=== PATIENT | female | born 1960 | race Caucasian/White ===

== ENCOUNTER 2017-11-01 16:15 | Emergency (ER) | payer BC, SELFPAY ==
[2017-11-01 16:17] VITALS: BP 161/86; PULSE 84; RESP 18; TEMP 36.4; O2SAT 99; BMI 30.9
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
== END 2017-11-01 16:59 | disposition home or self-care (01) ==
LOC: ED 16:54
PROVIDERS: Emergency Provider Emergency Medicine; Family Provider Family Medicine; PCP Family Medicine
DX: S16.1XXA Strain of muscle, fascia and tendon at neck level, initial encounter (principal); V89.2XXA Person injured in unspecified motor-vehicle accident, traffic, initial encounter; Y93.9 Activity, unspecified; Y92.9 Unspecified place or not applicable; I10 Essential (primary) hypertension; Z79.899 Other long term (current) drug therapy; Z72.0 Tobacco use
CPT/HCPCS: 99282

== ENCOUNTER → 2019-03-23 13:29 | Outpatient (CLI) | payer OTHER, SELFPAY ==
[2018-11-10 13:21] VITALS: BMI 29.5
[2019-01-12 12:59] VITALS: BMI 29.5
--- NOTE | 2019-03-23 14:44 | NEURO ---
NCS and/or EMG Patient Report Ordering Doctor: Antony Mckeon DATE OF SERVICE: 03/23/19 Janet Weiss is a 58-year-old female presents for electrodiagnostic testing of the upper limbs. She reports numbness and tingling in both hands. Electrodiagnostic findings: Left median motor nerve demonstrates prolonged distal latency with reduced amplitude and reduced conduction velocity. Right median motor nerve demonstrates prolonged distal latency with normal amplitude and conduction velocity. Ulnar motor response is normal bilaterally. Normal median and ulnar F waves. Prolonged median sensory latency at the wrist and palm bilaterally. Prolonged left ulnar sensory response. On needle EMG, all muscles tested in the upper limb showed no evidence of denervation with normal motor unit action potentials. Electrodiagnostic impression: This is an abnormal study in the upper limbs. 1. Electrodiagnostic findings demonstrate bilateral median mononeuropathy. This is consistent with a moderate right carpal tunnel syndrome and an advanced left carpal tunnel syndrome. 2. Electrodiagnostic findings demonstrate left ulnar sensory neuropathy. 3. There is no electrodiagnostic evidence for cubital tunnel syndrome. 4. There is no electrodiagnostic evidence for cervical radiculopathy. If there are any further questions, please do not hesitate to contact me.
== END ==
PROVIDERS: Family Provider Family Medicine; PCP Family Medicine; Referring Provider Family Medicine; Visit Provider Family Medicine
DX: G56.03 Carpal tunnel syndrome, bilateral upper limbs (principal)
CPT/HCPCS: 95886; 95913

== ENCOUNTER 2019-11-09 09:25 | Outpatient (RCR) | payer OTHER, SELFPAY ==
[2019-09-27 15:19] VITALS: BMI 29.5
== END 2019-11-23 23:59 ==
LOC: EMPH 09:25
PROVIDERS: PCP Family Medicine; Visit Provider Family Medicine Geriatric Medicine
DX: Z11.59 Encounter for screening for other viral diseases (principal)
CPT/HCPCS: 87635; U0003

== ENCOUNTER → 2019-11-09 22:49 | Outpatient (CLI) | payer OTHER, SELFPAY ==
[2019-09-27 15:19] VITALS: BMI 29.5
== END ==
PROVIDERS: PCP Family Medicine; Visit Provider Family Medicine Geriatric Medicine
DX: Z11.59 Encounter for screening for other viral diseases (principal)
CPT/HCPCS: 87635; U0003

== ENCOUNTER 2019-12-22 08:49 | Outpatient (RCR) | payer OTHER, SELFPAY ==
[2019-09-27 15:19] VITALS: BMI 29.5
== END 2019-12-24 23:59 ==
LOC: EMPH 08:49
PROVIDERS: PCP Family Medicine; Visit Provider Family Medicine Geriatric Medicine
DX: Z03.818 Encounter for observation for suspected exposure to other biological agents ruled out (principal)
CPT/HCPCS: 87426

== ENCOUNTER 2020-01-05 07:12 | Outpatient (RCR) | payer OTHER, SELFPAY ==
[2019-09-27 15:19] VITALS: BMI 29.5
[2020-01-05 09:41] LABS: Probe Check PASS; Specimen Processing Control PASS
== END 2020-01-23 23:59 ==
LOC: EMPH 07:12
PROVIDERS: PCP Family Medicine; Visit Provider Family Medicine Geriatric Medicine
DX: U07.1 COVID-19 (principal)
CPT/HCPCS: 87426; 87635; U0002

== ENCOUNTER 2020-03-30 05:29 | Day surgery (SDC) | payer OTHER, SELFPAY ==
[2019-12-29 15:23] VITALS: BMI 30.8
--- NOTE | 2020-03-09 15:45 | RAD_ITS ---
STUDY: X-RAY - RIGHT WRIST REASON FOR EXAM: Female, 59 years old. carpal tunnel pain x 6 months in right wrist. TECHNIQUE: 3 view(s) of the wrist were obtained. COMPARISON: None. FINDINGS: Normal visualized distal radius and ulna. Normal radiocarpal articulation. Normal distal radioulnar articulation. The lunate as a well-defined degenerative cyst on its proximal medial border. The lunate has a abnormal contour and sclerotic changes on its hamate surface. Mild degenerative arthrosis of the navicular multangular articulation. Moderate degenerative arthrosis of the first carpometacarpal joint. Normal second through fifth carpometacarpal articulations. Normal visualized metacarpal bones. The soft tissue structures are unremarkable. RAD/Wrist min 3 Views IMPRESSION: Small degenerative cyst of the lunate. Contour deformity and irregular sclerotic changes of the lunate on the hamate surface. 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 Mild degenerative changes of the navicular multangular articulation. Moderate degenerative arthrosis of the first carpometacarpal joint. Electronically Signed: Seda Becker MD at 20:12 EST , Service support ,
--- NOTE | 2020-03-09 15:49 | RAD_ITS ---
STUDY: X-RAY - LEFT WRIST REASON FOR EXAM: Female, 59 years old. carpal tunnel pain x 6 months in left wrist. TECHNIQUE: 3 view(s) of the wrist were obtained. COMPARISON: None. FINDINGS: Normal visualized distal radius and ulna. Normal radiocarpal articulation. Normal distal radioulnar articulation. Normal carpal bones. Normal carpal articulations. Mild degenerative changes of the first carpometacarpal joint. Normal second through fifth carpometacarpal articulations. Normal visualized metacarpal bones. The soft tissue structures are unremarkable. RAD/Wrist min 3 Views IMPRESSION: Mild degenerative changes of the first carpometacarpal joint. Otherwise normal wrist. Electronically Signed: Seda Becker MD at 20:07 EST , Service support ,
[2020-03-30] VITALS (7 sets, daily range): BP systolic 139–154; BP diastolic 64–77; PULSE 71–82; RESP 14–18; TEMP 36.2–36.8; O2SAT 95–99; BMI 30.4
--- NOTE | 2020-03-30 05:16 | HP_ITS ---
I have re-examined the patient. There are no clinical changes since date of exam. Intake Intake Visit Reasons: Bilat hands Chief Complaint: BL hands Accompanied by: self Is patient in pain?: Yes Pain scale (1-10): 3 Allergies Penicillins Allergy (Intermediate, Verified 12/29/19 15:28) Rash Medications multivitamin 1 cap PO DAILY 04/14/19 [History Confirmed 03/06/20] diclofenac sodium 1 % topical gel 2 g TOPICAL ONCE #100 g 09/27/19 [Rx Confirmed 03/06/20] hydrochlorothiazide 12.5 mg capsule 12.5 mg PO DAILY #90 cap 02/13/20 [Rx Confirmed 03/06/20] pantoprazole 20 mg tablet,delayed release 20 mg PO DAILY #90 tab 02/13/20 [Rx Confirmed 03/06/20] estradiol 0.5 mg tablet 0.5 mg PO DAILY #90 tab 03/06/20 [Rx Confirmed 03/06/20] PFSH Medical History (Updated 12/29/19 @ 15:[address] Antony Mckeon DO) Cervical cancer (Acute) GERD (gastroesophageal reflux disease) (Chronic) Surgical History History of hysterectomy (Acute) History of orthopedic surgery (Acute) Family History Mother Arthritis Cervical cancer CVA (cerebral vascular accident) Father Myocardial infarction Hypertension Seizure disorder CVA (cerebral vascular accident) Brother Myocardial infarction Social History (Updated 03/08/20 @ 13:[address] Jeimy Boone DO) Smoking Status: Current every day smoker alcohol intake: never substance use type: does not use HPI Bilat hands: Surgical H&P: Yes Details: Parts of this documentation were recorded by a scribe, this documentation accurately reflects the service provided and the decisions made by me, Dr. Jeimy Boone, 03/06/20 1787. KENYETTA STEELE is a 59 year old F NEW patient here today for BL hand numbness and pain. She states she has had this pain and numbness for about 1 year but the pain has worsened over the last few months. She denies any night splinting. She has had an EMG of the BL upper extremities which showed moderate right carpal tunnel syndrome and an advanced left carpal tunnel syndrome. She states that the left hand was worse than the right but now the right hand is worse. Patient states that she has BL hand numbness into the 1st, 2nd and 3rd fingers. Denies any steroid injections. She states that when she wakes up int he mornings she has numbness of all of her fingers. When she drives her hands also go numb. ROS Musc Reports joint pain, Reports joint swelling, Reports numbness, Denies radiating pain into limb, Reports tingling Skin/Breast Denies redness, Denies lesions, Denies itching, Denies rash, Denies skin swelling Neuro Yes numbness, Yes tingling Ortho Exam General General: Yes no acute distress Neurologic: Yes alert, Yes oriented x3 Psychologic: Yes reasonable and appropriate Right Wrist/Hand Skin/Wound: No Swelling, No Ecchymosis, No nail intact, Yes capillary refill normal Right Wrist: Yes Durken's Test, Tinel's and Phalen's; no TTP CMC or Thenar Atrophy Motor: EPL: 5, FDP-2: 4, 1st Dorsal Interosseous: 5, APB: 4 Sensation: Radial: I, Ulnar: I, Median: D Left Wrist/Hand Skin/Wound: No Swelling, No Ecchymosis, Yes capillary refill normal, No erythema Left Wrist: Yes Durken's Test, Yes Tinel's, Yes Phalen's and Yes Thenar Atrophy; no TTP CMC Motor: EPL: 5, FDP-2: 4, 1st Dorsal Interosseous: 5, APB: 4 Sensation: Radial: I, Ulnar: I, Median: D Assessment & Plan Problems 1. Carpal tunnel syndrome on both sides G56.03 Plan Personally reviewed patients EMG study that was completed 02/2019. Patient educated that she has moderate right carpal tunnel syndrome and she has advanced left carpal tunnel syndrome. Recommended surgical carpal tunnel release of the left side and a right carpal tunnel injection during surgery. Reviewed the pre- operative plans with the patient. Risks and benefits of the procedure were fully explained, including but not limited to infection, neurovascular injury, continued pain, arthritis, stiffness, need for further surgery, re-injury, DVT, PE, general risks of anesthesia, and loss of limb or life. The patient understands all the risks and does wish to proceed with written consent for left carpal tunnel release and right carpal tunnel injection. She will be off work for about 2 weeks. Follow up 2 weeks post op or sooner if pain, swelling, numbness or associated symptoms, or concerns develop. All questions answered. Patient in agreement of plan. Orders Orders: Wrist min 3 Views 03/06/20 G56.03 Wrist min 3 Views 03/06/20 G56.03 Wrist min 3 Views 03/06/20 G56.03 Coding Level of Care Code Off vis,new,level 3 Diagnoses Carpal tunnel syndrome on both sides G56.03 COVID (Procedure Consent) Procedure Criteria Procedure Criteria: Yes Elective The surgeon/proceduralist and patient have discussed in detail the risk of exposure to and/or potential harm posed by the COVID-19 virus with having a surgery/procedure at this time versus the risk of? delaying the surgery/procedure. It is not possible to know either the risk of delaying the surgery or procedure or chance of getting an infection with perfect accuracy, but a joint decision was made between the patient and the surgeon/proceduralist ?to proceed at this time with the scheduled surgery/procedure as indicated on the consent form.
[2020-03-30] MEDS: Lactated Ringers 1,000 ML 100 ML IV (06:13)
[2020-03-30] MEDS: Cefazolin 2 GM in 0.9% Normal Saline 100 ML IV (07:20)
--- NOTE | 2020-03-30 07:31 | DCINST_ITS ---
Discharge Diet: No Restrictions - Leave dressing on until seen in postop clinic in 10-14 days for suture removal, keep dressing clean, dry, intact; change dressing if gets wet/dirty, call with concerns Discharge Activity: May Not Drive May shower in (days): 1 Ice area for (Minutes): 20 - Every hour while awake. Weight Bearing Status: Weight bearing as tolerated Keep extremity elevated above heart level: Operative Extremity Call your doctor if your incision/area has: Continuous Slow Oozing, Sudden Increased Bleeding, Increased Pain/ Swelling, Increased Redness, Foul Smelling Discharge Call your doctor if you observe: Fever of 101 or Higher, Coldness, Increased Pain, Numbness or Tingling, Change in Color, Calf discomfort Allergies/Adverse Reactions: Allergies Penicillins Allergy (Intermediate, Verified 03/23/20 09:53) Rash Medications to take at Discharge multivitamin 1 cap PO DAILY 04/14/19 hydrochlorothiazide 12.5 mg capsule 12.5 mg PO DAILY #90 cap 02/13/20 pantoprazole 20 mg tablet,delayed release 20 mg PO DAILY #90 tab 02/13/20 estradiol 0.5 mg tablet 0.5 mg PO DAILY #90 tab 03/06/20 Acetaminophen 325 mg PO Q6H PRN PRN 03/23/20 Acetaminophen/Codeine #3 [Tylenol #3 Tablet] 1 - 2 tab PO Q6H PRN PRN #30 tab 03/30/20 The following prescriptions were given: Acetaminophen/Codeine #3 [Tylenol #3 Tablet] 1 - 2 tab PO Q6H PRN PRN #30 tab PRN Reason: Pain Transmission Status: Sent to [id number] Primary Care Physician: Antony Mckeon DO [Primary Care Provider] - Test Results: Test results from this visit will be discussed in further detail at your follow- up appointment, if applicable. Please Follow Up With: Jeimy Boone DO - [phone]
--- NOTE | 2020-03-30 07:32 | PCM.OPRPT ---
Report of Operation Date of Procedure: 03/30/20 Pre-Operative Diagnosis: bilateral carpal tunnel syndrome Post-Operative Diagnosis: same Surgery/Procedure Performed:: left carpal tunnel release, right carpal tunnel injection Type of Anesthesia:: Alondra [place] Anesthesiologist: Jose Ramon Fisher Description of Procedure: Preoperative note Patient is a { 59 } patient with nerve conduction study confirming bilateral carpal tunnel syndrome. Patient failed conservative treatment for her carpal tunnel elected proceed with left carpal tunnel release right carpal tunnel injection. Risks benefits and alternatives surgery discussed with patient. Risks including but not limited to blood loss, blood clot, infection, neurovascular injury, failure procedure, loss of life and loss of limb. Patient is aware like proceed with left carpal tunnel release right carpal tunnel injection. Operative note Patient seen and examined preoperative holding area. Left hand was marked. History and physical and consent reviewed. Patient was brought to the operating room placed supine on the operating table. Sign in, anesthesia, antibiotics were administered. Left upper extremity was prepped and draped after Alondra block was initiated. All bony prominences well-padded SCDs placed on bilateral lower extremities. We marked out our incisions for our carpal tunnel release at the intersection of Julia's line in the fourth ray flexed. We extended about a centimeter and a half. Timeout was performed. We then checked ensure that the Alondra block was working with pickups which it was. We then used a 15 blade to make a skin incision. We then dissected down tenotomy syllable of the transverse carpal ligament. We then used a new 15 blade cut through the transverse carpal ligament down to the level of the median nerve. We then further released the median nerve the combination of the 15 blade and tenotomies. The nerve was grayish in color and adherent to the transverse carpal ligament volarly. We released the transverse carpal ligament distally to the fat pad and then proximally under standard technique. We then palpated to ensure that we released all of the transverse carpal ligament which we did. We irrigated the incision with copious amounts of sterile saline. All bleeders were coagulated. The incision was closed with interrupted 4-0 nylon stitches. We then moved to the right carpal tunnel and under sterile conditions injected right carpal tunnel with 1% xylocaine plain/20mg kenalog. bandaid applied. Tourniquet was deflated for total working time of 14 minutes. Patient tolerated procedure well there were no complications. Patient transferred to recovery room in stable condition. Postoperative note Hospital pharmacy has prescription Leave dressing clean dry and intact Follow-up in 2 weeks Call with concerns This note was generated with [employer] dictation software. It may contain incorrect words, spelling, and punctuation that were not noted in checking the note before signing.
[2020-03-30] MEDS: Triamcinolone Acetonide 40 MG/ML Vial (07:46)
[2020-03-30] MEDS: Mupirocin Ointment 22gm Tube 1 APPLIC (07:46)
[2020-03-30] MEDS: Lidocaine 1% (5 ml sdv) 5 ML Vial (07:46)
[2020-03-30] MEDS: HYDROcodone Bitartrate/Apap 5/325 Tablet PO (09:14)
== END 2020-03-30 09:25 | disposition home or self-care (01) ==
LOC: SDC 05:31 → AC 05:31
PROVIDERS: PCP Family Medicine; Referring Provider Orthopaedic Surgery; Visit Provider Orthopaedic Surgery
PROC: (CPT 64721; principal; 2020-03-30 07:00)
DX: G56.03 Carpal tunnel syndrome, bilateral upper limbs (principal); F17.200 Nicotine dependence, unspecified, uncomplicated; Z88.0 Allergy status to penicillin; K21.9 Gastro-esophageal reflux disease without esophagitis
CPT/HCPCS: 01992; 20526; 64721; 73110; J7120; A4216

== ENCOUNTER 2020-04-21 18:12 | Outpatient (RCR) | payer OTHER, SELFPAY ==
[2019-12-29 15:23] VITALS: BMI 30.8
[2020-04-04 15:58] VITALS: BMI 30.8
== END 2020-04-21 19:00 | disposition home or self-care (01) ==
LOC: EMPH 18:12
PROVIDERS: PCP Family Medicine; Referring Provider Family Medicine Geriatric Medicine; Visit Provider Family Medicine Geriatric Medicine
DX: Z03.818 Encounter for observation for suspected exposure to other biological agents ruled out (principal)
CPT/HCPCS: 87426

== ENCOUNTER 2020-05-16 09:53 | Outpatient (RCR) | payer OTHER, SELFPAY ==
[2020-04-04 15:58] VITALS: BMI 30.8
== END 2020-05-23 23:59 ==
LOC: EMPH 09:53
PROVIDERS: PCP Family Medicine; Referring Provider Family Medicine Geriatric Medicine; Visit Provider Family Medicine Geriatric Medicine
DX: Z03.818 Encounter for observation for suspected exposure to other biological agents ruled out (principal)
CPT/HCPCS: 87426

== ENCOUNTER 2020-06-22 10:06 | Outpatient (RCR) | payer OTHER, SELFPAY | END 2020-06-22 23:59 | LOC: EMPH 10:06 | PROVIDERS: PCP Family Medicine; Referring Provider Family Medicine Geriatric Medicine; Visit Provider Family Medicine Geriatric Medicine | DX: Z03.818 Encounter for observation for suspected exposure to other biological agents ruled out (principal) | CPT/HCPCS: 87426 ==

== ENCOUNTER 2020-07-13 10:19 | Outpatient (RCR) | payer OTHER, SELFPAY | END 2020-07-23 23:59 | LOC: EMPH 10:19 | PROVIDERS: PCP Family Medicine; Referring Provider Family Medicine Geriatric Medicine; Visit Provider Family Medicine Geriatric Medicine | DX: Z03.818 Encounter for observation for suspected exposure to other biological agents ruled out (principal) | CPT/HCPCS: 87426 ==

== ENCOUNTER 2020-08-21 13:23 | Outpatient (RCR) | payer OTHER, SELFPAY | END 2020-08-22 23:59 | LOC: EMPH 13:23 | PROVIDERS: PCP Family Medicine; Referring Provider Family Medicine Geriatric Medicine; Visit Provider Family Medicine Geriatric Medicine | DX: Z03.818 Encounter for observation for suspected exposure to other biological agents ruled out (principal) | CPT/HCPCS: 87426 ==

== ENCOUNTER 2020-09-21 12:11 | Outpatient (RCR) | payer OTHER, SELFPAY ==
[2020-07-26 15:29] VITALS: BMI 30.8
== END 2020-09-22 23:59 ==
LOC: EMPH 12:11
PROVIDERS: PCP Family Medicine; Referring Provider Family Medicine Geriatric Medicine; Visit Provider Family Medicine Geriatric Medicine
DX: Z03.818 Encounter for observation for suspected exposure to other biological agents ruled out (principal)
CPT/HCPCS: 87426

== ENCOUNTER 2020-10-23 13:14 | Outpatient (RCR) | payer OTHER, SELFPAY ==
[2020-07-26 15:29] VITALS: BMI 30.8
== END 2020-10-23 23:59 ==
LOC: EMPH 13:14
PROVIDERS: PCP Family Medicine; Referring Provider Family Medicine Geriatric Medicine; Visit Provider Family Medicine Geriatric Medicine
DX: Z03.818 Encounter for observation for suspected exposure to other biological agents ruled out (principal)
CPT/HCPCS: 87426

== ENCOUNTER → 2020-10-25 15:53 | Outpatient (CLI) | payer OTHER, SELFPAY ==
[2020-10-25 17:39] LABS: Thyroid Stim Hormone (TSH) 1.04 uIU/mL (0.358-3.74)
== END ==
PROVIDERS: PCP Family Medicine; Referring Provider Family Medicine; Visit Provider Family Medicine
DX: Z00.00 Encounter for general adult medical examination without abnormal findings (principal)
CPT/HCPCS: 36415; 84443

== ENCOUNTER 2020-11-22 13:17 | Outpatient (RCR) | payer OTHER, SELFPAY ==
[2020-10-24 00:31] VITALS: BMI 30.8
== END 2020-11-22 23:59 ==
LOC: EMPH 13:17
PROVIDERS: PCP Family Medicine; Referring Provider Family Medicine Geriatric Medicine; Visit Provider Family Medicine Geriatric Medicine
DX: Z03.818 Encounter for observation for suspected exposure to other biological agents ruled out (principal)
CPT/HCPCS: 87426

== ENCOUNTER 2020-12-17 16:16 | Outpatient (RCR) | payer OTHER, SELFPAY ==
[2020-11-23 00:25] VITALS: BMI 30.8
== END 2020-12-23 23:59 ==
LOC: EMPH 16:16
PROVIDERS: PCP Family Medicine; Referring Provider Family Medicine Geriatric Medicine; Visit Provider Family Medicine Geriatric Medicine
DX: Z03.818 Encounter for observation for suspected exposure to other biological agents ruled out (principal)
CPT/HCPCS: 87426

== ENCOUNTER → 2020-12-27 06:58 | Outpatient (CLI) | payer OTHER, SELFPAY ==
--- NOTE | 2020-12-27 07:00 | BI_ITS ---
MAMMOGRAPHY - BILATERAL SCREENING REASON FOR EXAM: Female, 60 years old. Routine annual screening examination. PERTINENT HISTORY: Non-contributory. TECHNIQUE: Digital bilateral breast adithya (3D mammographic acquisition) in the CC and MLO projections. 2-D mediolateral oblique (MLO) and craniocaudad (CC) views of both breasts were obtained. CAD: Full Field Digital Mammography with Computer Added Detection was performed. COMPARISON: Comparison is made with prior examination dated 10/21/2017. FINDINGS: Breast Composition: The breasts are almost entirely fatty. There are no dominant masses or suspicious calcifications. No other significant abnormalities are identified. There has been no significant change since the prior study. BI/SCRN MAMM (CAD)W/ADITHYA BILAT IMPRESSION: Stable bilateral screening mammogram. Yearly follow-up mammogram recommended. (A) ASSESSMENT CATEGORY: BIRADS Category 1: Negative. A letter regarding these results will be sent to the patient by the facility within 30 days. Approximately 10% of breast cancers are not detected by mammography. A normal mammogram should not delay biopsy of a clinically suspicious abnormality. [id number] Electronically Signed: Rodolfo Kaur MD at 8:31 EDT , Service support ,
== END ==
PROVIDERS: PCP Family Medicine; Referring Provider Family Medicine; Visit Provider Family Medicine
DX: Z12.31 Encounter for screening mammogram for malignant neoplasm of breast (principal)
CPT/HCPCS: 77063; 77067

== ENCOUNTER 2021-01-18 07:25 | Outpatient (RCR) | payer OTHER, SELFPAY ==
[2020-12-24 00:21] VITALS: BMI 30.8
== END 2021-01-22 23:59 ==
LOC: EMPH 07:25
PROVIDERS: PCP Family Medicine; Referring Provider Family Medicine Geriatric Medicine; Visit Provider Family Medicine Geriatric Medicine
DX: Z03.818 Encounter for observation for suspected exposure to other biological agents ruled out (principal)
CPT/HCPCS: 87426

== ENCOUNTER 2021-02-21 10:15 | Outpatient (RCR) | payer OTHER, SELFPAY ==
[2021-01-23 00:26] VITALS: BMI 30.8
== END 2021-02-22 23:59 ==
LOC: EMPH 10:15
PROVIDERS: PCP Family Medicine; Referring Provider Family Medicine Geriatric Medicine; Visit Provider Family Medicine Geriatric Medicine
DX: Z03.818 Encounter for observation for suspected exposure to other biological agents ruled out (principal)
CPT/HCPCS: 87426; 87635; U0003; U0005

== ENCOUNTER 2021-03-25 08:12 | Outpatient (RCR) | payer OTHER, SELFPAY ==
[2021-02-23 00:25] VITALS: BMI 30.8
== END 2021-03-25 23:59 ==
LOC: EMPH 08:12
PROVIDERS: PCP Family Medicine; Referring Provider Family Medicine Geriatric Medicine; Visit Provider Family Medicine Geriatric Medicine
DX: Z03.818 Encounter for observation for suspected exposure to other biological agents ruled out (principal)
CPT/HCPCS: 87426

== ENCOUNTER 2021-04-08 09:25 | Outpatient (RCR) | payer OTHER, SELFPAY ==
[2021-03-26 00:31] VITALS: BMI 30.8
== END 2021-04-22 23:59 ==
LOC: EMPH 09:25
PROVIDERS: PCP Family Medicine; Referring Provider Family Medicine Geriatric Medicine; Visit Provider Family Medicine Geriatric Medicine
DX: Z03.818 Encounter for observation for suspected exposure to other biological agents ruled out (principal)
CPT/HCPCS: 87426

== ENCOUNTER 2021-07-11 08:32 | Day surgery (SDC) | payer OTHER, SELFPAY ==
[2021-07-11] VITALS (7 sets, daily range): BP systolic 148–180; BP diastolic 61–118; PULSE 72–98; RESP 16; TEMP 36.2–36.4; O2SAT 96–100; BMI 33.3
--- NOTE | 2021-07-11 | COLBX_PTH ---
PATIENT: KENYETTA STEELE LOC: EN U#:[id number] AGE/SX: 60/F ROOM: RE07/11/[address]: Dr. Gab Steven DO : 1960 BED: DIS: 07/11/2021 SPEC #: [id number] RECD: 07/11/21 12:06 STATUS: JANEEN REHuy #: [id number] DEEPTI: 07/11/21 00:[address]: Gab Steven DEPT: SURGICAL PATHOLOGY RECD BY: Tiago Durbin ENTERED: 07/11/21 12:07 SP TYPE: COLON BX OTHR DR: Dr. Antony Mckeon, DO Tissues: A - Duodenum, NOS B - Gastric mucous membrane C - Gastric mucous membrane D - Esophageal mucous membrane E - Ileum, NOS F - Ascending colon G - Transverse colon Procedures: Special Stain Group II Surgery Specimen Level IV Alcian Blue/PAS (control) HEADER OPERATION: Colonoscopy, EGD biopsy, dilation, polypectomy (MAC) PRE-OP DIAGNOSIS: GERD, screening TISSUE SUBMITTED: A ? Duodenum biopsy, B ? Gastric antrum biopsy, C ? Gastric body biopsy, D ? Distal esophagus biopsy, E ? Terminal ileum biopsy, F ? Ascending polyp, G ? Transverse polyp MICROSCOPIC DIAGNOSIS A. Duodenum, biopsy: Fragments of duodenal mucosa with mild Nathalia gland hyperplasia. B. Gastric antrum, biopsy: Mild gastritis. See microscopic description and comment. C. Gastric body, biopsy: Mild gastritis. See microscopic description. D. Distal esophagus, biopsy: Fragments of gastroesophageal mucosa with chronic inflammation. Intestinal metaplasia (goblet cell metaplasia) not identified. See comment. E. Terminal ileum, biopsy: A fragment of small intestinal mucosa, no pathologic diagnosis. F. Ascending colon polyp, biopsy: Fragments of tubular adenoma. G. Transverse colon polyp, biopsy: Fragments of tubular adenoma. SJ:rg 07/12/2021 COMMENT B. The results of immunohistochemistry for Helicobacter pylori will be reported separately ([id number]). C. Alcian blue/PAS stain with matched control is used in the evaluation of the specimen. MICROSCOPIC DESCRIPTION Slides are reviewed. B & C. The specimen shows fragments of gastric mucosa with chronic inflammatory cell infiltrates in the lamina propria consisting of lymphocytes and plasma cells, consistent with mild chronic gastritis. GROSS DESCRIPTION A - Received in fixative is one container labeled with the patient's name and designated duodenum biopsy. The specimen consists of two irregular fragments of light fraga soft tissue that in aggregate measure 0.6 x 0.3 x 0.1 cm. The specimen is totally submitted in one cassette. B - Received in fixative is one container labeled with the patient's name and designated antrum biopsy. The specimen consists of two irregular fragments of light fraga soft tissue that in aggregate measure 0.6 x 0.6 x 0.1 cm. The specimen is totally submitted in one cassette. C - Received in fixative is one container labeled with the patient's name and designated gastric body. The specimen consists of multiple irregular fragments of light fraga soft tissue that in aggregate measure 1 x 0.5 x 0.1 cm. The specimen is totally submitted in one cassette. D - Received in fixative is one container labeled with the patient's name and designated distal esophagus biopsy. The specimen consists of multiple irregular fragments of light fraga soft tissue that in aggregate measure 1.3 x 0.6 x 0.1 cm. The specimen is totally submitted in one cassette. E - Received in fixative is one container labeled with the patient's name and designated terminal ileum. The specimen consists of one irregular fragment of light fraga soft tissue that measures 0.5 x 0.5 x 0.1 cm. The specimen is totally submitted in one cassette. F - Received in fixative is one container labeled with the patient's name and designated ascending colon polyp. The specimen consists of multiple irregular fragments of light fraga soft tissue that in aggregate measure 2.2 x 1 x 0.1 cm. The specimen is totally submitted in one cassette. G - Received in fixative is one container labeled with the patient's name and designated transverse colon polyp. The specimen consists of multiple irregular fragments of light fraga soft tissue that in aggregate measure 1 x 1 x 0.1 cm. The specimen is totally submitted in one cassette. / SJ:rg 07/11/2021 TC:1 CPT: 90483 x7, [id number]
--- NOTE | 2021-07-11 09:09 | PCM.HP.BLA ---
History and Physical Date of Admission: 07/11/21 KENYETTA STEELE, is a 60 F who presents to the office today for Evaluation of GERD. Kenyetta established with this clinic 05.02.21 with referral from her PCP. She was noted to have chest/epigastric pain with feeling of food sticking during deglutition. Nexium has shown better results than Protonix, however neither control her symptoms. she was [place] in [place]. She began having chest pain and presented to the ED at that time. Upon return she saw PCP who increased her Nexium to 40mg QD which has been helpful, however she periodically has breakthrough reflux during the night. She has reduced caffeine, chocolates and cigarettes. Currently her goal is to quit cigarettes. Additionally, she is having some difficulty with swallowing particularly when she is having issues with reflux. Additional medical history includes COVID (01.05.20), arthritis, cervical cancer, COPD with chronic cough. ROS Const Constitutional: No anorexia, fatigue, fever(s), weight change or sleep problems Eyes Eyes: No change in vision ENT ENT: No abnormal hearing, difficulty swallowing, mouth lesions, tongue swelling or throat swelling Resp Respiratory: No cough or shortness of breath Cardio Cardiology: No chest pain at rest, chest pain with exertion, shortness of breath or dyspnea on exertion Gastro GI: No difficulty swallowing Genitourinary-Female: No difficulty urinating or burning urination Musc Musculoskeletal: No joint pain, joint swelling, muscle weakness or decreased muscle mass Skin Skin: No hair loss in leg, yellowing of the eye, itchy eyes, rash, skin ulcer or skin swelling Neuro Neurology: No abnormal hearing, abnormal movements, confusion, unsteady gait/balance or memory loss Psych Psychiatric: No anxiety, No confusion and No memory loss Endo Endocrine: No fatigue or weight change Aller/Imm Allergy/Immunologic: No itchy eyes, throat swelling or tongue swelling Fuad/Lymp Hematologic/Lymphatic: No easy bleeding, easy bruising or enlarged lymph nodes Exam Const General: cooperative and comfortable Nutritional Appearance: average body habitus and well nourished [facility] Head: normal to inspection Ears: hearing grossly normal bilaterally Nose: external nose normal Face and sinus: normal facial exam Mouth: oral mucosae normal Throat: posterior oropharynx normal Eyes General: appearance normal, both eyes and all related structures Neck Neck: normal visual inspection Chest Chest palpation & inspection: normal inspection of the chest and normal palpation of entire chest wall Resp Effort & Inspection: normal respiratory effort Auscultation: Bilateral: Clear to Auscultation Cardio Palpation: normal PMI Rate: regular rate Rhythm: regular rhythm GI Inspection: normal to inspection Auscultation: normal bowel sounds Percussion: normal to percussion Palpation: no hepatosplenomegaly Skin General: no rashes or lesions noted Neuro General: patient alert Extrem General: normal to inspection Psych Affect: normal affect Quality Reporting Tobacco Screening ([facility] 138) Smoking Status: Current every day smoker Assessment and Plan Assessment and Plan (1) GERD (gastroesophageal reflux disease): Status: Chronic Plan - Dr. De Guzman Friend, DO: She will undergo an endoscopic evaluation of her upper GI tract, including screening her for Black's esophagus. We will continue her on 40 mg of Nexium at this time. She was explained alternatives, risk, benefits including understanding bleeding, infection, sepsis, perforation, need for emergent . She will have an ASA of 2. She will also be evaluated for possible hernia or any diseases of stomach and small bowel that could be seen with forward-viewing endoscope. (2) Screening for colon cancer: Status: Acute Plan - Dr. De Guzman Friend, DO: She has never had a screening colonoscopy. She was explained alternatives, risk, benefits including not withstanding bleeding, infection, sepsis, perforation, need for emergent . She will have an ASA of 1. I have re-examined the patient. There are no clinical changes since date of exam.
[2021-07-11] MEDS: Lactated Ringers 1,000 ML 15 ML IV (09:13)
--- NOTE | 2021-07-11 09:30 | IMM_PTH ---
PATIENT: KENYETTA STEELE LOC: EN U#:[id number] AGE/SX: 60/F ROOM: RE07/11/[address]: Dr. Gab Steven DO : 1960 BED: DIS: 07/11/2021 SPEC #: [id number] RECD: 07/11/21 13:06 STATUS: JANEEN REQ #: [id number] DEEPTI: 07/11/21 09:[address]: Gab Steven DEPT: IMMUNOHISTOCHEMISTRY RECD BY: Reema Akhtar ENTERED: 07/11/21 13:07 SP TYPE: IMMUNO OTHR DR: Dr. Antony Mckeon, DO Tissues: B - Stomach, NOS Procedures: H Pylori (initial) PHYSICIAN & INSTITUTION [place] [id number] SPECIMEN INFORMATION: Tissue Source: B ? Gastric antrum biopsy Clinical Info: GERD, screening Specimen Number: [id number] CPT code: 92567 METHODOLOGY: Deparaffinized sections of prefer/formalin-fixed tissue or PAP/DQ stained slides are incubated with monoclonal/polyclonal antibodies/oligonucleotide probes. Localization is made via biotin free immunoperoxidase method. Appropriate controls are performed and reacted as expected. Results on target cell population are indicated in the following table: RESULTS: ANTIBODY / CLONE RESULT Block B H Pylori (polyclonal) negative These tests were developed and their performance characteristics determined by [facility]. They may not have been cleared or approved by the U.S. Food and Drug Administration. The FDA has determined that such clearance or approval is not necessary. The above immunohistochemical/dualISH markers are ordered and reviewed by the Pathologist. INTERPRETATION: B. Gastric antrum, biopsy: Negative for Helicobacter pylori organisms. SJ:steve 07/12/2021
--- NOTE | 2021-07-11 09:42 | HP.PCM_ITS ---
History and Physical Date of Admission: 07/11/21 [facility] Details: KENYETTA STEELE, is a 60 F who presents to the office today for Evaluation of GERD. Kenyetta established with this clinic 05.02.21 with referral from her PCP. She was noted to have chest/epigastric pain with feeling of food sticking during deglutition. Nexium has shown better results than Protonix, however neither control her symptoms. she was visiting her [place] in [place]. She began having chest pain and presented to the ED at that time. Upon return she saw PCP who increased her Nexium to 40mg QD which has been helpful, however she periodically has breakthrough reflux during the night. She has reduced caffeine, chocolates and cigarettes. Currently her goal is to quit cigarettes. Additionally, she is having some difficulty with swallowing particularly when she is having issues with reflux. Additional medical history includes COVID (01.05.20), arthritis, cervical cancer, COPD with chronic cough. ROS Const Constitutional: No anorexia, fatigue, fever(s), weight change or sleep problems Eyes Eyes: No change in vision ENT ENT: No abnormal hearing, difficulty swallowing, mouth lesions, tongue swelling or throat swelling Resp Respiratory: No cough or shortness of breath Cardio Cardiology: No chest pain at rest, chest pain with exertion, shortness of breath or dyspnea on exertion Gastro GI: No difficulty swallowing Genitourinary-Female: No difficulty urinating or burning urination Musc Musculoskeletal: No joint pain, joint swelling, muscle weakness or decreased muscle mass Skin Skin: No hair loss in leg, yellowing of the eye, itchy eyes, rash, skin ulcer or skin swelling Neuro Neurology: No abnormal hearing, abnormal movements, confusion, unsteady gait/balance or memory loss Psych Psychiatric: No anxiety, No confusion and No memory loss Endo Endocrine: No fatigue or weight change Aller/Imm Allergy/Immunologic: No itchy eyes, throat swelling or tongue swelling Fuad/Lymp Hematologic/Lymphatic: No easy bleeding, easy bruising or enlarged lymph nodes Exam Const General: cooperative and comfortable Nutritional Appearance: average body habitus and well nourished [facility] Head: normal to inspection Ears: hearing grossly normal bilaterally Nose: external nose normal Face and sinus: normal facial exam Mouth: oral mucosae normal Throat: posterior oropharynx normal Eyes General: appearance normal, both eyes and all related structures Neck Neck: normal visual inspection Chest Chest palpation & inspection: normal inspection of the chest and normal palpation of entire chest wall Resp Effort & Inspection: normal respiratory effort Auscultation: Bilateral: Clear to Auscultation Cardio Palpation: normal PMI Rate: regular rate Rhythm: regular rhythm GI Inspection: normal to inspection Auscultation: normal bowel sounds Percussion: normal to percussion Palpation: no hepatosplenomegaly Skin General: no rashes or lesions noted Neuro General: patient alert Extrem General: normal to inspection Psych Affect: normal affect Quality Reporting Tobacco Screening ([facility] 138) Smoking Status: Current every day smoker Assessment and Plan Assessment and Plan (1) GERD (gastroesophageal reflux disease): Status: Chronic Plan - Dr. De Guzman Friend, DO: She will undergo an endoscopic evaluation of her upper GI tract, including screening her for Black's esophagus. We will continue her on 40 mg of Nexium at this time. She was explained alternatives, risk, benefits including understanding bleeding, infection, sepsis, perforation, need for emergent . She will have an ASA of 2. She will also be evaluated for possible hernia or any diseases of stomach and small bowel that could be seen with forward-viewing endoscope. (2) Screening for colon cancer: Status: Acute Plan - Dr. De Guzman Friend, DO: She has never had a screening colonoscopy. She was explained alternatives, risk, benefits including not withstanding bleeding, infection, sepsis, perforation, need for emergent . She will have an ASA of 1. I have re-examined the patient. There are no clinical changes since date of exam.
[2021-07-11] MEDS: 0.9% Normal Saline (Pres. free 10 ML Vial (10:18)
[2021-07-11] MEDS: Epinephrine (1 mg/ml) 1 MG/ML VIAL (10:19)
--- NOTE | 2021-07-11 10:46 | OP.EGD_ITS ---
Patient Name: Janet Weiss Procedure Date: 07/11/2021 9:46 AM Date of : 1960 Age: 60 Procedure: Upper GI endoscopy Indications: Epigastric abdominal pain, Functional Dyspepsia, Dysphagia, Heartburn Providers: Gab Steven DO Medicines: Monitored Anesthesia Care Patient Profile: This is a 60 year old female. Refer to note in patient chart for documentation of history and physical. Patient has symptoms of chronic dysphagia and chronic heartburn. Complications: No immediate complications. Procedure: Pre-Anesthesia Assessment: - Prior to the procedure, a History and Physical was performed, and patient medications and allergies were reviewed. The risks and benefits of the procedure and the sedation options and risks were discussed with the patient. All questions were answered and informed consent was obtained. Patient identification and proposed procedure were verified by the physician in the pre-procedure area. Mental Status Examination: alert and oriented. Airway Examination: normal oropharyngeal airway and neck mobility. Respiratory Examination: clear to auscultation. CV Examination: normal. Prophylactic Antibiotics: The patient does not require prophylactic antibiotics. Prior Anticoagulants: The patient has taken no previous anticoagulant or antiplatelet agents. ASA Grade Assessment: II - A patient with mild systemic disease. After reviewing the risks and benefits, the patient was deemed in satisfactory condition to undergo the procedure. The anesthesia plan was to use moderate sedation / analgesia (conscious sedation). Immediately prior to administration of medications, the patient was re-assessed for adequacy to receive sedatives. The heart rate, respiratory rate, oxygen saturations, blood pressure, adequacy of pulmonary ventilation, and response to care were monitored throughout the procedure. The physical status of the patient was re-assessed after the procedure. After obtaining informed consent, the endoscope was passed under direct vision. Throughout the procedure, the patient's blood pressure, pulse, and oxygen saturations were monitored continuously. The colonoscope was introduced through the mouth, and advanced to the second part of duodenum. The upper GI endoscopy was accomplished without difficulty. The patient tolerated the procedure well. Scope In: 9:53:29 AM Scope Out: 10:02:03 AM Total Procedure Duration Time 0 hours 8 minutes 34 seconds Findings: LA Grade A (one or more mucosal breaks less than 5 mm, not extending between tops of 2 mucosal folds) esophagitis with no bleeding was found 37 to 40 cm from the incisors. Biopsies were taken with a cold forceps for histology. Verification of patient identification for the specimen was done. Estimated blood loss was minimal. A moderate Schatzki ring was found in the lower third of the esophagus. A guidewire was placed and the scope was withdrawn. Dilation was performed with a Savary dilator with no resistance at 51 Fr. The dilation site was examined following endoscope reinsertion and showed moderate improvement in luminal narrowing. Estimated blood loss was minimal. A medium-sized hiatal hernia was present. Patchy mildly erythematous mucosa without bleeding was found in the gastric body and at the incisura. Biopsies were taken with a cold forceps for histology. Verification of patient identification for the specimen was done. Estimated blood loss was minimal. Patchy mildly erythematous mucosa without active bleeding and with no stigmata of bleeding was found in the duodenal bulb. Biopsies were taken with a cold forceps for histology. Verification of patient identification for the specimen was done. Estimated blood loss was minimal. Impression: - LA Grade A reflux esophagitis. Rule out Black's esophagus. Biopsied. - Moderate Schatzki ring. Dilated. - Medium-sized hiatal hernia. - Erythematous mucosa in the gastric body and incisura. Biopsied. - Erythematous duodenopathy. Biopsied. Recommendation: - Discharge patient to home. - Resume previous diet. - Continue present medications. - Await pathology results. Procedure Code(s): --- Professional --- 13191, Esophagogastroduodenoscopy, flexible, transoral; with insertion of guide wire followed by passage of dilator(s) through esophagus over guide wire 68863, 59, Esophagogastroduodenoscopy, flexible, transoral; with biopsy, single or multiple CPT copyright 2017 [employer]. All rights reserved. The codes documented in this report are preliminary and upon senior principal software engineer review may be revised to meet current compliance requirements. Gab Steven DO 07/11/2021 10:46:39 AM This report has been signed electronically. Number of Addenda: 1 Note Initiated On: 07/11/2021 9:46 AM Addendum Number: 1 Addendum Date: 11/22/2021 6:15:59 AM MAC was used as sedation for this procedure. Gab Steven DO 11/22/2021 6:16:04 AM This report has been signed electronically.
--- NOTE | 2021-07-11 10:47 | OP.CCLET_ITS ---
11/22/2021 Antony Mckeon Re : Upper GI endoscopy procedure for Janet Weiss Dear Dr. Mckeon This procedure was performed on June. My impressions and recommendations are as follows: Impressions : - LA Grade A reflux esophagitis. Rule out Black's esophagus. Biopsied. - Moderate Schatzki ring. Dilated. - Medium-sized hiatal hernia. - Erythematous mucosa in the gastric body and incisura. Biopsied. - Erythematous duodenopathy. Biopsied. Recommendations : - Discharge patient to home. - Resume previous diet. - Continue present medications. - Await pathology results. My findings are described in the full procedure note, which is enclosed. If I can be of further assistance, please feel free to contact me at . Sincerely, Gab Steven, 07/11/2021 10:46:39 AM This report has been signed electronically.
--- NOTE | 2021-07-11 10:54 | OP.COLON_ITS ---
Patient Name: Janet Weiss Procedure Date: 07/11/2021 10:02 AM Date of : 1960 Age: 60 Procedure: Colonoscopy Indications: Screening for colorectal malignant neoplasm Providers: Gab Steven DO Medicines: Monitored Anesthesia Care Patient Profile: This is a 60 year old female. Refer to note in patient chart for documentation of history and physical. Patient has symptoms of chronic dysphagia and chronic heartburn. Last Colonoscopy: date unknown. Unable to locate last colonoscopy report. Complications: No immediate complications. Procedure: Pre-Anesthesia Assessment: - Prior to the procedure, a History and Physical was performed, and patient medications and allergies were reviewed. The risks and benefits of the procedure and the sedation options and risks were discussed with the patient. All questions were answered and informed consent was obtained. Patient identification and proposed procedure were verified by the physician in the pre-procedure area. Mental Status Examination: alert and oriented. Airway Examination: normal oropharyngeal airway and neck mobility. Respiratory Examination: clear to auscultation. CV Examination: normal. Prophylactic Antibiotics: The patient does not require prophylactic antibiotics. Prior Anticoagulants: The patient has taken no previous anticoagulant or antiplatelet agents. ASA Grade Assessment: II - A patient with mild systemic disease. After reviewing the risks and benefits, the patient was deemed in satisfactory condition to undergo the procedure. The anesthesia plan was to use moderate sedation / analgesia (conscious sedation). Immediately prior to administration of medications, the patient was re-assessed for adequacy to receive sedatives. The heart rate, respiratory rate, oxygen saturations, blood pressure, adequacy of pulmonary ventilation, and response to care were monitored throughout the procedure. The physical status of the patient was re-assessed after the procedure. After I obtained informed consent, the scope was passed under direct vision. Throughout the procedure, the patient's blood pressure, pulse, and oxygen saturations were monitored continuously. The Duodenoscope was introduced through the anus and advanced to the terminal ileum. The colonoscopy was performed without difficulty. The patient tolerated the procedure well. The quality of the bowel preparation was good. Scope In: 10:05:13 AM Scope Withdrawal Time 0 hours 28 minutes 35 seconds Scope Out: 10:39:05 AM Total Procedure Duration Time 0 hours 33 minutes 52 seconds Findings: The perianal and digital rectal examinations were normal. Many small and large-mouthed diverticula were found in the recto-sigmoid colon, sigmoid colon and descending colon. There was no evidence of diverticular bleeding. A 5 mm polyp was found in the sigmoid colon. The polyp was sessile. The polyp was removed with a hot snare. Resection and retrieval were complete. Verification of patient identification for the specimen was done. Estimated blood loss was minimal. A 25 mm polyp was found in the ascending colon. The polyp was sessile. Area was successfully injected with 5 mL of a 1:10,000 solution of epinephrine for a lift polypectomy. The polyp was removed with a saline injection-lift technique using a hot snare. Resection and retrieval were complete. Verification of patient identification for the specimen was done. Estimated blood loss was minimal. Coagulation for bleeding prevention using argon plasma at 0.3 liters/minute and 20 mi was successful. A patchy area of the terminal ileum was congested. Biopsies were taken with a cold forceps for histology. Verification of patient identification for the specimen was done. Estimated blood loss was minimal. Impression: - Moderate diverticulosis in the recto-sigmoid colon, in the sigmoid colon and in the descending colon. There was no evidence of diverticular bleeding. - One 5 mm polyp in the sigmoid colon, removed with a hot snare. Resected and retrieved. - One 25 mm polyp in the ascending colon, removed using injection-lift and a hot snare. Resected and retrieved. Injected. - Congested mucosa in the terminal ileum. Biopsied. Recommendation: - Discharge patient to home. - Resume previous diet. - Continue present medications. - Await pathology results. - Repeat colonoscopy in 1 year for surveillance after piecemeal polypectomy. - Return to GI office. Procedure Code(s): --- Professional --- 81131, Colonoscopy, flexible; with removal of tumor(s), polyp(s), or other lesion(s) by snare technique 14044, Colonoscopy, flexible; with directed submucosal injection(s), any substance 96636, 59, Colonoscopy, flexible; with biopsy, single or multiple CPT copyright 2017 [employer]. All rights reserved. The codes documented in this report are preliminary and upon medical record coder review may be revised to meet current compliance requirements. Gab Steven DO 07/11/2021 10:54:16 AM This report has been signed electronically. Number of Addenda: 1 Note Initiated On: 07/11/2021 10:02 AM Addendum Number: 1 Addendum Date: 11/22/2021 6:16:12 AM MAC was used as sedation for this procedure. Gab Steven DO 11/22/2021 6:16:18 AM This report has been signed electronically.
--- NOTE | 2021-07-11 10:55 | OP.CCLET_ITS ---
11/22/2021 Antony Mckeon Re : Colonoscopy procedure for Janet Weiss Dear Dr. Mckeon This procedure was performed on June. My impressions and recommendations are as follows: Impressions : - Moderate diverticulosis in the recto-sigmoid colon, in the sigmoid colon and in the descending colon. There was no evidence of diverticular bleeding. - One 5 mm polyp in the sigmoid colon, removed with a hot snare. Resected and retrieved. - One 25 mm polyp in the ascending colon, removed using injection-lift and a hot snare. Resected and retrieved. Injected. - Congested mucosa in the terminal ileum. Biopsied. Recommendations : - Discharge patient to home. - Resume previous diet. - Continue present medications. - Await pathology results. - Repeat colonoscopy in 1 year for surveillance after piecemeal polypectomy. - Return to GI office. My findings are described in the full procedure note, which is enclosed. If I can be of further assistance, please feel free to contact me at . Sincerely, Gab Steven DO 07/11/2021 10:54:16 AM This report has been signed electronically.
== END 2021-07-11 11:49 | disposition home or self-care (01) ==
LOC: EN 08:33 → AC 08:36
PROVIDERS: PCP Family Medicine; Referring Provider Family Medicine; Visit Provider Internal Medicine Gastroenterology
PROC: 0DJD8ZZ Inspection of Lower Intestinal Tract, Via Natural or Artificial Opening Endoscopic (ICD-10-PCS; CPT 45378; principal; 2021-07-11 09:25)
DX: Z12.11 Encounter for screening for malignant neoplasm of colon (principal); J44.9 Chronic obstructive pulmonary disease, unspecified; K63.5 Polyp of colon; K44.9 Diaphragmatic hernia without obstruction or gangrene; K21.00 Gastro-esophageal reflux disease with esophagitis, without bleeding; K63.89 Other specified diseases of intestine; F17.200 Nicotine dependence, unspecified, uncomplicated; R13.10 Dysphagia, unspecified; K57.30 Diverticulosis of large intestine without perforation or abscess without bleeding; Z86.16 Personal history of COVID-19; Z85.41 Personal history of malignant neoplasm of cervix uteri; K29.70 Gastritis, unspecified, without bleeding
CPT/HCPCS: 45380; 45385; 43239; 43248; 45381; 88305; 88313; 88342; J7120; C1769; J2405; J3490

== ENCOUNTER → 2021-10-14 | Outpatient (CLI) | payer OTHER, SELFPAY ==
--- NOTE | 2021-10-14 14:16 | NEURO ---
NCS and/or EMG Patient Report Ordering Doctor: Brett Woodruff DATE OF SERVICE: 10/14/21 Indication: Left hand numbness, tingling and weakness. History of prior carpal tunnel syndrome status post decompression. Symptoms improved initially, but then returned. A prior study was completed on 03/23/19. Findings: Nerve conduction studies were performed in the left upper extremity. The left median motor study recording the abductor pollicis brevis showed a normal amplitude, prolonged distal latency and normal conduction velocity. The left ulnar motor study recording the abductor digiti minimi showed a normal amplitude, normal distal latency and normal conduction velocity. No conduction block or focal slowing was present across the elbow. The left median sensory response recording digit two showed a normal amplitude (though reduced compared to the ulnar sensory), prolonged latency and mildly slowed conduction velocity. The left ulnar sensory response recording digit five showed a normal amplitude, latency and conduction velocity. The left radial sensory response recording over the extensor snuff box showed a normal amplitude, latency and conduction velocity. Left median-ulnar lumbrical / interosseous motor latencies showed a prolonged median latency compared to the ulnar. Needle EMG of the left upper extremity muscles was performed. No denervation was seen in any muscle. Motor units in the abductor pollicis brevis were slightly large amplitude and long duration with normal recruitment. All other motor unit morphology, activation and recruitment patterns were normal. Impression: This is an abnormal study. 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 There is no active denervation of the thenar muscle to suggest ongoing axon loss. Compared to the prior study from 2019, there has been significant improvement of both median motor and median sensory responses. In addition, there is no electrophysiologic evidence of superimposed cervical radiculopathy in the left upper extremity. Yaniv Lobo D.O. Multi Select Codes Neurology Neurology Interp Codes: 37675-78 Musc test done w/n test comp (interp) and 27399-33 Nr cndj test 7-8 studies (interp)
== END | disposition home or self-care (01) ==
LOC: PSN 12:09
PROVIDERS: PCP Family Medicine; Visit Provider Physician Assistant
DX: R20.2 Paresthesia of skin (principal)
CPT/HCPCS: 95886; 95910

== ENCOUNTER → 2022-10-29 | Outpatient (CLI) | payer OTHER, SELFPAY ==
--- NOTE | 2022-10-29 14:26 | NEURO ---
NCS and/or EMG Patient Report Ordering Doctor: Brett Woodruff DATE OF SERVICE: 10/29/22 Janet presents for electrodiagnostic testing of the right upper limb. He reports numbness and tingling in the right hand. Electrodiagnostic testing: Right median motor nerve demonstrates significantly prolonged distal latency with reduced amplitude and normal conduction velocity. Right ulnar motor response is within normal limits. Normal right ulnar F-wave. Absent right median F-wave. Prolonged right median sensory latency at the wrist. Needle EMG testing was performed in upper limbs. All muscles tested showed no evidence of denervation with normal motor unit action potentials. Electrodiagnostic assessment: This is an abnormal study in the right upper limb. 1. Electrodiagnostic findings suggestive of right-sided median mononeuropathy. This consistent with a severe right carpal tunnel syndrome. Multi Select Codes Neurology Neurology Interp Codes: 90340-64 Musc test done w/n test comp (interp) and 27255-38 Nrv cndj test 7-8 studies (interp)
== END | disposition home or self-care (01) ==
LOC: PSN 08:17
PROVIDERS: PCP Family Medicine; Referring Provider Physician Assistant; Visit Provider Physician Assistant
DX: R20.2 Paresthesia of skin (principal)
CPT/HCPCS: 95886; 95910

== ENCOUNTER → 2023-01-21 | Outpatient (CLI) | payer OTHER, SELFPAY ==
[2023-01-21 16:42] LABS: Absolute Lymphocyte Count 1.59 X10^3/uL (0.83-4.51); Basophil# 0.05 X10^3/uL; Basophil% 0.8 % (0-1); Eosinophil# 0.24 X10^3/uL; Eosinophils% 3.7 % (0-5); Hematocrit 47.1 % (37-47); Hemoglobin 15.1 g/dL (12.0-15.0); Lymphocyte # 1.59 X10^3/ul (0.83-4.51); Lymphocyte % 24.8 % (19-41); Mean Corp Hgb Conc 32.1 g/dL (32-36); Mean Corpuscular Hgb 29.5 pg (27.0-32.0); Mean Platelet Vol. 9.9 fl (6.2-12.0); Monocyte# 0.49 X10^3/uL; Monocyte% 7.6 % (0-10); NRBC Flagged by Analyzer 0 % (0-5); Neutrophil # 4.03 X10^3/uL (2.7-7.7); Neutrophil % 62.9 % (47-70); Platelet Count 396 K/mm3 (150-450); RBC Distribution Width CV 13.2 % (11.6-14.6); RBC Distribution Width SD 45.1 fl (35.1-43.9); Red Blood Count 5.12 M/mm3 (4.2-5.4); White Blood Count 6.4 K/mm3 (4.4-11.0)
[2023-01-21 16:56] LABS: AST(SGOT) 17 U/L (15-37); Alanine Aminotransfer ALT/SGPT 21 U/L (13-56); Albumin, Serum 3.8 g/dL (3.2-5.0); Alkaline Phosphatase 83 U/L (45-117); Anion Gap 5 (5-15); BUN 15 mg/dL (7-18); Calcium,Total 9.3 mg/dL (8.5-10.1); Chloride 100 mmol/L (98-107); Creatinine, Serum 0.79 mg/dL (0.55-1.02); EST Glomerular Filtration Rate 78 mL/min (>60); Est Glom Filt Rate - Afr Amer 94 mL/min (>60); Globulin 3.8 g/dL (2.2-4.2); Glucose 96 mg/dL (74-106); Potassium 3.8 mmol/L (3.5-5.1); Protein, Total 7.6 g/dL (6.4-8.2); Sodium Level 136 mmol/L (136-145)
== END | disposition home or self-care (01) ==
LOC: BIMLAB 15:09
PROVIDERS: PCP Family Medicine; Referring Provider Family Medicine; Visit Provider Family Medicine
DX: I10 Essential (primary) hypertension (principal)
CPT/HCPCS: 36415; 80053; 85025

== ENCOUNTER 2023-01-28 09:27 | Day surgery (SDC) | payer OTHER, SELFPAY ==
[2023-01-28] VITALS (8 sets, daily range): BP systolic 110–136; BP diastolic 56–70; PULSE 18–68; RESP 16; TEMP 36.2–36.8; O2SAT 92–97; BMI 32.4
[2023-01-28] MEDS: Lactated Ringers 1,000 ML 15 ML IV (09:55)
--- NOTE | 2023-01-28 11:04 | HP.PCM_ITS ---
HPI - General HPI Narrative JANET STEELE, is a 62 F who presents for right endoscopic carpal tunnel release surgery. no changes to h and p. ok to proceed. rab and post op intructions - typically no narcotics. MR#: [id number] Acct: [id number] Name: JANET STEELE Rep #: [id number] : 1960 Provider: Dr. Joey Winter MD Age/Sex: 62/F Location: [facility] – [place].GRAB[facility] Status: Signed Intake Vital Signs 07/16/2314:48 10/21/2313:00 Height 5 ft 3 in 5 ft 3 in Weight: 178 lb BMI 31.5 BP 140/70 H Blood Pressure Location Lt brachial Position Sitting Respiration 16 Pulse 76 Pulse Source Monitor Temp 97.5 F L Temp Source Temporal Pulse Oximetry (%) 98 Oxygen Delivery Method room air Intake Visit Reasons: RIGHT HAND Chief Complaint: nerve conduction f/u Accompanied by: Grandson Is patient in pain?: Yes Pain scale (1-10): 3 Allergies Penicillins Allergy (Intermediate, Verified 10/31/22 14:27) Rash Medications hydrochlorothiazide 12.5 mg capsule 12.5 mg PO DAILY #90 caps 11/21/21 [Rx Confirmed 10/31/22] cyclobenzaprine 10 mg tablet 10 mg PO HS #30 tabs 02/12/22 [Rx Confirmed 10/31/22] alprazolam 0.25 mg tablet (Xanax) 0.25 mg PO BID PRN anxiety #30 tabs 04/16/22 [Rx Confirmed 10/31/22] meloxicam 15 mg tablet 15 mg PO DAILY #30 tabs 09/01/22 [Rx Confirmed 10/31/22] esomeprazole magnesium 40 mg capsule,delayed release 40 mg PO DAILY #90 caps 10/03/22 [Rx Confirmed 10/31/22] estradiol 0.5 mg tablet 0.5 mg PO DAILY #90 tabs 10/03/22 [Rx Confirmed 10/31/22] levocetirizine 5 mg tablet (Xyzal) 5 mg PO DAILY #30 tabs 10/03/22 [Rx Confirmed 10/31/22] PFSH Medical History Arthritis Cancer Cervical cancer Difficulty swallowing GERD (gastroesophageal reflux disease) Hypertension Smoker Wears dentures Wears glasses Surgical History History of hysterectomy History of orthopedic surgery Left carpal tunnel syndrome Family History Mother Arthritis Cervical cancer CVA (cerebral vascular accident)Father Myocardial infarction Hypertension Seizure disorder CVA (cerebral vascular accident)Brother Myocardial infarction Social History Smoking Status: Current every day smoker tobacco type: cigarettes alcohol intake: never substance use type: does not use HPI RIGHT HAND Details: Parts of this documentation were recorded by a scribe, this documentation accurately reflects the service provided and the decisions made by me, Dr. Joey Winter MD 10/31/22 [id number]. JANET STEELE is a 62 year old F here today for R carpal tunnel syndrome. first 3 digits, couple years, becoming worse, on the right side, had prior surgery [facility] on the left side, felt the same, wasn't happy on the left side. goes numb, most of the time. had open procedure on the left. no problems with infection. normally smokes 6 cig/day but quitting. no diabetes or blood thinners. tried night splints many months but no effect. Ortho Exam General General: Yes no acute distress Neurologic: Yes alert and Yes oriented x3 Psychologic: Yes reasonable and appropriate Right Wrist/Hand Skin/Wound: Yes CDI, No Swelling, No Ecchymosis, Yes nail intact and Yes capillary refill normal Right Wrist: Yes ROM-Extension 0-60, ROM-Flexion 0-80, ROM-Pronation 0-80, ROM- Supination 0-90, Tinel's, Phalen's and Thenar Atrophy; No Snuffbox tenderness, Tender to palpate triangular fibrocartilage complex, tender to palpate 1st dorsal compartment, tender to palpate carpometacarpal joint or Hypothenar Atrophy Motor: EPL: 5, FDP-2: 5, 1st Dorsal Interosseous: 5 and APB: 4 Sensation: Radial: I, Ulnar: I and Median: D WRIST: mild Dupuytren both sides, neg tinels at the elbow. 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 He reports numbness and tingling in the right hand. Electrodiagnostic testing: Right median motor nerve demonstrates significantly prolonged distal latency with reduced amplitude and normal conduction velocity. Right ulnar motor response is within normal limits. Normal right ulnar F-wave. Absent right median F-wave. Prolonged right median sensory latency at the wrist. Needle EMG testing was performed in upper limbs. All muscles tested showed no evidence of denervation with normal motor unit action potentials. Electrodiagnostic assessment: This is an abnormal study in the right upper limb. 1. Electrodiagnostic findings suggestive of right-sided median mononeuropathy. This consistent with a severe right carpal tunnel syndrome. Coding Level of Care Code Off vis,est,level 3 Diagnoses Paresthesias in right hand R20.2 Right carpal tunnel syndrome G56.01 Assessment and Plan Assessment and Plan (1) Paresthesias in right hand: Status: Acute Plan: 62 F right carpal tunnel syndrome. Explained the diagnosis prognosis natural history of this to the patient. This can continue to become worse or more permanent with muscle atrophy becoming worse over time. Patient's a symptoms as well as a clinical exam and nerve conduction studies fit with right carpal tunnel syndrome. Patient has failed nonoperative management including night splinting other options would be rest ice anti-inflammatories activity modifications cortisone injections as well as open or endoscopic carpal tunnel release surgery. The patient like to go ahead with surgery. Explained the pros cons risk and benefits of that as well as recovery 2 weeks to heal the incision and typically 6 weeks before getting back to heavy lifting and gripping. The patient understands wish to go ahead with right endoscopic carpal tunnel release surgery. I also warned that smoking (should quit or cut back - patient is actively attempting) and other medical conditions can increase the risk of infection or other operative complications. Pros and cons risks and benefits were discussed with the patient including but not limited to infection, pain, stiffness, bleeding, damage to surrounding structures, neurovascular injury, recurrence or retear, failure or wear of hardware or fixation, instability, fracture, deep vein thrombosis and pulmonary embolism, anesthetic risks, , patient dissatisfaction, need for further surgery and other risks. Patient understood and wished to proceed with surgery, and signed the informed consent documentation. [facility] Medical History (Updated 01/21/23 @ 14:[address] Antony Mckeon, DO) Alcohol use Anxiety Arthritis Cancer Cervical cancer Difficulty swallowing GERD (gastroesophageal reflux disease) History of hiatal hernia Hypertension Injury of head and neck Smoker Wears dentures Wears glasses Home Medications alprazolam 0.25 mg tablet (Xanax) 0.25 mg PO BID PRN anxiety #30 tabs 04/16/22 [Rx Last Taken Unknown] levocetirizine 5 mg tablet See Rx Instructions .Route .COMPLEX #30 tabs 01/07/23 [Rx Last Taken Unknown] cyclobenzaprine 10 mg tablet 10 mg PO HS PRN muscle spasm 01/21/23 [History Last Taken Unknown] esomeprazole magnesium 40 mg capsule,delayed release 40 mg PO DAILY #90 caps 01/21/23 [Rx Last Taken Unknown] estradiol 0.5 mg tablet 0.5 mg PO DAILY #90 tabs 01/21/23 [Rx Last Taken Unknown] hydrochlorothiazide 12.5 mg capsule 12.5 mg PO DAILY #90 caps 01/21/23 [Rx Last Taken Unknown] meloxicam 15 mg tablet 15 mg PO DAILY PRN pain 01/21/23 [History Last Taken Unknown] Allergy/AdvReac Type Severity Reaction Status Date / Time Penicillins Allergy Intermediate Rash Verified 01/28/23 09:44 Family History Mother Arthritis Cervical cancer CVA (cerebral vascular accident) Father Myocardial infarction Hypertension Seizure disorder CVA (cerebral vascular accident) Brother Myocardial infarction Surgical History History of esophagogastroduodenoscopy (EGD) History of hysterectomy History of orthopedic surgery Social History Smoking Status: Current every day smoker tobacco type: cigarettes alcohol intake: never substance use type: does not use Vital Signs Vital Signs Vital Signs: 01/28/23 09:50 01/28/23 09:50 Temperature 98.3 F Temperature Source Temporal Pulse Rate 68 Respiratory Rate 16 Respiratory Pattern Normal Blood Pressure 136/64 H Blood Pressure Mean 88 Blood Pressure Source Monitor Blood Pressure Position Semi-Fowlers Blood Pressure Location Left Arm Pulse Ox 97 Oxygen Delivery Method Room Air Weight Weight: 182 lb 15.739 oz Body Mass Index (BMI) 32.4
[2023-01-28] MEDS: Cefazolin 2 GM in 0.9% Normal Saline (100mL Bag) 100 ML IV (11:27)
[2023-01-28] MEDS: Bupivacaine 0.25% 30 ML Vial (11:54)
--- NOTE | 2023-01-28 12:03 | OP.PCM_ITS ---
Problems Associated Problem List Diagnoses (1) Right carpal tunnel syndrome: Report of Operation Date of Procedure: 01/28/23 Pre-Operative Diagnosis: right carpal tunnel syndrome Post-Operative Diagnosis: same Surgery/Procedure Performed:: right endoscopic carpal tunnel release Surgeon: oJey Winter Type of Anesthesia: Local MAC and Local Anesthesiologist: Trevin Ribeiro Estimated Blood Loss (mL): 5 Description of Procedure: Patient was brought to the operating room theater.? The patient was administered 2g iv ancef prior to the start of the procedure.? Placed supine on the operating room table.? Anesthesia induced.? SCDs on the legs.? Tourniquet applied to the right upper operative extremity, appropriately padded. Arm table used. Operative extremity prepped and draped in the usual sterile fashion with chlorhexidine- based prep solution allowing over 3 minutes drying time prior to draping.? Preoperative timeout performed to confirm the site patient and the surgery. I used the [employer] center line nanoscope endoscopic carpal tunnel kit / technique. 0.25% bupivicaine at incision site. ? Tourniquet up at 250mmg. I made a transverse 2 cm incision in line with the? transverse wrist crease.? This was in line with the fourth digit.? I carried the dissection down through skin and s ubcutaneous tissue achieved meticulous hemostasis. Just ulnar to palmaris tendon.? I incised the antebrachial fascia.? I passed sequential dilators into the carpal tunnel along the radial border of the Guyon's canal aiming for the fourth digit with the hand in extension. I used a synovial elevator to identify the transverse fibers of the transverse carpal tunnel ligament.? Passed the scope into the carpal tunnel. Once I had identified the full proximal and distal extent of the ligament I fully released the ligament under direct visualization by deploying the blade and slowly withdrawing the scope made sequential passes until I no longer felt tension as well as the entire extent of the ligament was released under direct visualization.? Sounded the tunnel with gerardo tenotomy scissors, complete release, no bands. Pictures taken and saved before and after release. Tourniquet let down. Wound thoroughly irrigated.?Meticulous hemostasis achieved.? Incisions closed with 3-0 nylon for the skin.?Skin was cleaned and dried. adaptic 4x4 gauze and gwendolyn. Patient woken up,? transferred off the operating room table and taken to postanesthetic care unit in stable condition. All sponge needle instrument counts were correct no complications.? Plan for the patient to be discharged home according to day surgery criteria when they are comfortable. Follow-up in the office in 2 days time. Gentle ROM hand and elbow no heavy lifting. Complications none Admit VTE Documentation VTE Present on Admission: No VTE Mechan Device Prophylaxis: SCD's VTE Pharm Prophylaxis ordered?: No Reason prophylaxis not ordered:: Treatment Not Indicated Procedures Musculoskeletal 20xxx-29xxx: 37229 WRIST ENDOSCOPY/SURGERY
--- NOTE | 2023-01-28 12:06 | DCINST_ITS ---
Discharge Instructions Diet Discharge Diet: No restrictions Activity Ice area for (Minutes): 10 Lifting Restrictions: no heavy lifting or gripping, ok for eating and drinking Keep extremity elevated above heart level: Operative Extremity Dressing / Incision Call your doctor if your incision/area has: Continuous Slow Oozing, Sudden Increased Bleeding, Increased Pain/ Swelling, Increased Redness, Foul Smelling Discharge and Swelling at the incision site Remove Dressing in: leave in place till F/U Follow Up Care Please Follow Up With: Joey Winter MD When: 2 days Test Results: Test results from this visit will be discussed in further detail at your follow- up appointment, if applicable. Discharge Plan Admission Attending Provider: Joey Winter Primary Care Provider: Antony Mckeon Discharge Orders/Prescriptions Prescriptions: No Action alprazolam [Xanax] 0.25 mg tablet 0.25 mg PO BID PRN (Reason: anxiety) Qty: 30 0RF hydrochlorothiazide 12.5 mg capsule 12.5 mg PO DAILY Qty: 90 3RF estradiol 0.5 mg tablet 0.5 mg PO DAILY Qty: 90 1RF esomeprazole magnesium 40 mg capsule,delayed release(DR/EC) 40 mg PO DAILY Qty: 90 1RF cyclobenzaprine 10 mg tablet 10 mg PO HS PRN (Reason: muscle spasm) meloxicam 15 mg tablet 15 mg PO DAILY PRN (Reason: pain) levocetirizine 5 mg tablet See Rx Instructions .ROUTE .COMPLEX Qty: 30 4RF Dose Instruction: TAKE 1 TABLET BY MOUTH ONCE DAILY Rx Instructions: TAKE 1 TABLET BY MOUTH ONCE DAILY Referrals / Follow Up: Antony Mckeon DO [Primary Care Provider] - Joey Winter MD [Med Staff - Active Staff] - Disposition Disposition (needs filled in before D/C Order can be placed): Home, Self Care
== END 2023-01-28 13:10 | disposition home or self-care (01) ==
LOC: SDC 09:28 → AC 09:29
PROVIDERS: PCP Family Medicine; Referring Provider Orthopaedic Surgery Sports Medicine; Visit Provider Orthopaedic Surgery Sports Medicine
PROC: (CPT 29848; principal; 2023-01-28 11:05)
DX: G56.01 Carpal tunnel syndrome, right upper limb (principal); J44.9 Chronic obstructive pulmonary disease, unspecified; I10 Essential (primary) hypertension; F17.210 Nicotine dependence, cigarettes, uncomplicated; K21.9 Gastro-esophageal reflux disease without esophagitis; Z90.710 Acquired absence of both cervix and uterus
CPT/HCPCS: 29848; 01810; J7120; J2405

== ENCOUNTER → 2023-11-26 | Outpatient (CLI) | payer OTHER, SELFPAY ==
--- NOTE | 2023-11-26 13:01 | ART_ITS ---
Reason For Study: PVD Procedure A bilateral lower extremity continuous wave Doppler with analog waveform analysis,segmental pressures,and ankle brachial indexes without exercise. Left Segmental Pressures Left brachial= 164mmHg. Left posterior tibial artery = 167mmHg. Left dorsalis pedis artery = 161mmHg. Left digit = 82 mmHg. The left dorsalis pedis waveforms are triphasic. The left posterior tibial artery waveforms are triphasic. Right Segmental Pressures Right brachial= 155mmHg. Right posterior tibial artery = 172mmHg. Right dorsalis pedis artery = 159mmHg. Right digit = 120 mmHg. The right dorsalis pedis waveforms are triphasic. The right posterior tibial artery waveforms are triphasic. Indices The right ankle brachial index by the dorsalis pedis is 0.97. The right ankle brachial index by the posterior tibial artery is 1.05. The right digital-brachial index is 0.73. The left ankle brachial index by the dorsalis pedis is 0.98. The left ankle brachial index by the posterior tibial artery is 1.02. The left digital-brachial index is 0.50. VL/Lower Ext Art Exam w/o Exercis Interpretation Summary Right DEMETRIUS 1.05, normal. Doppler/PVR waveforms of the right leg normal at rest. TBI diminished, pedal/digit disease vs spasm. Left DEMETRIUS 1.02, normal. Doppler/PVR waveforms of the left leg normal at rest. TB I diminished, pedal/digit disease vs spasm. Ordering Physician: Edgar Jones Referring Physician: Bob Mckeon M.D. Performed By: Monik Pineda RVT
[2023-11-26 14:01] LABS: Hematocrit 43.8 % (37-47); Hemoglobin 14.3 g/dL (12.0-15.0); Mean Corp Hgb Conc 32.6 g/dL (32-36); Mean Corpuscular Hgb 29.2 pg (27.0-32.0); Mean Corpuscular Volume 89.6 fL (81-99); Mean Platelet Vol. 9.7 fl (6.2-12.0); Platelet Count 395 K/mm3 (150-450); RBC Distribution Width CV 13.8 % (11.6-14.6); RBC Distribution Width SD 45.4 fl (35.1-43.9); Red Blood Count 4.89 M/mm3 (4.2-5.4); White Blood Count 5.5 K/mm3 (4.4-11.0)
[2023-11-26 14:04] LABS: Erythrocyte Sedimentation Rate 18 mm/hr (0-30)
[2023-11-26 14:20] LABS: CRP 9.21 mg/L (0.0-3.0); Rheumatoid Factor < 10.0 IU/mL (<15)
[2023-11-28 13:08] LABS: CCP IgG Antibodies 7 units (0-19)
[2023-11-30 18:08] LABS: ANTINUCLEAR ANTIBODIES DIRECT Negative (Negative)
== END | disposition home or self-care (01) ==
LOC: CVS 12:58
PROVIDERS: PCP Family Medicine; Referring Provider Podiatrist; Visit Provider Podiatrist
DX: M79.671 Pain in right foot (principal); M79.672 Pain in left foot; I73.89 Other specified peripheral vascular diseases
CPT/HCPCS: 36415; 85027; 85652; 86038; 86140; 86200; 86225; 86235; 86431; 93923

== ENCOUNTER 2024-02-05 09:22 | Day surgery (SDC) | payer OTHER, SELFPAY ==
[2024-02-05] VITALS (7 sets, daily range): BP systolic 141–180; BP diastolic 68–110; PULSE 70–75; RESP 12–18; TEMP 36.1–36.7; O2SAT 92–97; BMI 34.0
[2024-02-05] MEDS: 0.9% Normal Saline (1000mL) 1,000 ML 40 ML IV (09:52)
--- NOTE | 2024-02-05 10:27 | PRE.ANES_ITS ---
ASA Classification* ASA Classification ASA Classification: 2 Assessment & Plan Anesthesia* Anesthesia Assessment Anesthesia Assessment: Discussed sedation and/or anesthesia options, risks, benefits, and alternatives with patient/parents/legal guardian/POA. Questions invited. The patient/parents/legal guardian/POA seems to understand and agrees to proceed with anesthesia plan. Reviewed the physical assessment, medical history, allergy history and patient home medications list prior to surgery/procedure/anesthetic and documented any changes. Performed airway and anesthesia risk assessments. Anesthesia Type Anesthesia Type: General Anesthesia Focused Assessment* Temperature: 98.1 F Pulse Rate: 70 Blood Pressure: 141/68 Respiratory Rate: 16 Pulse Ox: 97 Airway Assessment Mouth opens: >3 cm Mallampati Score: II Focused Labs Anesthesia Preop lab: CBC WBC 5.5 K/mm3 (4.4-11.0) 11/26/23 13:24 RBC 4.89 M/mm3 (4.2-5.4) 11/26/23 13:24 Hgb 14.3 g/dL (12.0-15.0) 11/26/23 13:24 Hct 43.8 % (37-47) 11/26/23 13:24 Plt Count 395 K/mm3 (150-450) 11/26/23 13:24 CHEMISTRY Potassium 3.8 mmol/L (3.5-5.1) 01/21/23 15:09 Sodium 136 mmol/L (136-145) 01/21/23 15:09 Phosphorus 3.7 mg/dL (2.5-4.9) 10/25/20 15:55 BUN 15 mg/dL (7-18) 01/21/23 15:09 Creatinine 0.79 mg/dL (0.55-1.02) 01/21/23 15:09 Glucose 96 mg/dL (74-106) 01/21/23 15:09 TSH 1.04 uIU/mL (0.358-3.74) 10/25/20 15:54 COAG Pre-Assessment Diagnosis/Proposed Procedure Planned Operative Procedure(s): LEFT FOOT FIRST METATARSALPHALANGEAL JOINT FUSION AND CORRECTION OF THE LEFT SECOND, THIRD, AND FOURTH HAMMER TOE Anesthesia History 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 When Was Last Pacemaker Check QUESTION #4 FULL TEXT: You/Your Family Experience fever (hyperthermia) with Anesthesia Last Oral Intake Last Oral intake: Last Oral Intake NPO since 22:30 02/05/24 09:45 Meds taken in AM with sips of water? 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 Female Yes 02/01/24 13:00 HX of Motion Sickness No 02/01/24 13:00 HX of N/V After Surgery No 02/01/24 13:00 Non-Smoker Yes 02/01/24 13:00 Duration of Surgery greater Yes 02/01/24 13:00 than 60 minutes Number of Risk Factors 3 02/01/24 13:00 PONV Score Moderate Risk 02/01/24 13:00 Height & Weight Height & Weight: Anesthesia: Height & Weight Height 5 ft 3 in 02/05/24 09:45 Weight: 87 kg 02/05/24 09:45 Body Mass Index (BMI) 34.0 02/05/24 09:45 Respiratory Assessment Respiratory Assessment - rip/mould operator: Respiratory Tract Infection Hx - rip/mould operator Hx Respiratory Tract Infection No 02/01/24 13:00 STOP Sleep Apnea STOP Sleep Apnea - rip/mould operator: STOP Sleep Apnea - rip/mould operator Hx Hypertension Yes: controlled with meds 02/01/24 13:00 Hx Sleep Apnea No 02/01/24 13:00 CPAP BIPAP Do you snore loudly (louder No 02/01/24 13:00 than talking or can be heard Do you often feel tired/ No 02/01/24 13:00 fatigued/ sleepy during daytime? Has anyone observed you stop No 02/01/24 13:00 breathing during sleep? STOP Results Negative 02/01/24 13:00 QUESTION #5 FULL TEXT : Do you snore loudly (louder than talking or can be heard through closed doors)? 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 Specify any problems Hx of Preganancy in last 3 No 02/01/24 13:00 Months Nurse Filling Out Transfusion [email or web address] 02/01/24 13:00 & Questions: Date: 02/01/24 02/01/24 13:00 Time: 13:04 02/01/24 13:00 Patient unable to answer at this time (ie. confused, unrespo /Reproduction History /Reproductive History - rip/mould operator: /Reproductive Hx- rip/mould operator Hx Now No 02/01/24 13:00 Gestational Age (in weeks): EDC: Hx Hx Para Hx Section SAB No 03/11/23 10:16 Active Medications Active Medications: Current Medications Generic Name Dose Route Start Last Admin Trade Name Freq PRN Reason Stop Dose Admin Clindamycin Phosphate 900 mg in 50 mls @ 75 mls/hr 02/05/24 11:00 Cleocin IV 02/05/24 11:39 PREOP ONE Sodium Chloride 1,000 mls @ 40 mls/hr 02/05/24 09:50 02/05/24 09:52 IV 02/07/24 11:49 40 mls/hr .Q25H NOEMY Administration Protocol PFSH Medical History Alcohol use Anxiety Injury of head and neck History of hiatal hernia Wears glasses Wears dentures Cancer Arthritis Difficulty swallowing Smoker Hypertension Cervical cancer GERD (gastroesophageal reflux disease) Home Medications ?Medication ?Instructions ?Recorded ?Last Taken ?Type alprazolam 0.25 mg tablet (Xanax) 0.25 mg PO BID PRN anxiety #30 tabs 04/16/22 Unknown Rx hydrochlorothiazide 12.5 mg capsule 12.5 mg PO DAILY #90 caps 01/21/23 Unknown Rx esomeprazole magnesium 40 mg 40 mg PO DAILY #90 caps 06/11/23 02/05/24 Rx capsule,delayed release levocetirizine 5 mg tablet See Rx Instructions .Route 06/11/23 Unknown Rx .COMPLEX #90 tabs estradiol 0.5 mg tablet 0.5 mg PO DAILY #90 tabs 08/11/23 Unknown Rx Allergy/AdvReac Type Severity Reaction Status Date / Time Penicillins Allergy Intermediate Rash Verified 02/05/24 09:44 prednisone Allergy Intermediate Rash Verified 02/05/24 09:44 Family History Mother Arthritis Cervical cancer CVA (cerebral vascular accident) Father Myocardial infarction Hypertension Seizure disorder CVA (cerebral vascular accident) Brother Myocardial infarction Surgical History History of esophagogastroduodenoscopy (EGD) History of orthopedic surgery History of hysterectomy Social History Smoking Status: Current every day smoker tobacco type: e-cigarettes Tobacco: How many years used: 40 alcohol intake: never substance use type: does not use Review of Systems (Anesthesia) ROS Narrative System reviewed and no additional complaints, except as documented.
--- NOTE | 2024-02-05 11:25 | RAD_ITS ---
EXAM: XR LEFT FOOT, 2 VIEWS CLINICAL INDICATION: LT 1ST METATARSAL FUSION, 2ND 3RD AND 4TH HAMMERTOE CORRECTION TECHNIQUE: Frontal and lateral spot images of the left foot. COMPARISON: No relevant prior studies available. FINDINGS: Fluoroscopy support for first MTP joint fusion, second through fourth hammertoe corrections. OTHER FINDINGS: Fluoroscopy time: 86 seconds. 2 spot images. Cumulative dose: 0.4447 mgy. RAD/Foot 2 Views IMPRESSION: 1. Fluoroscopy support for first MTP joint fusion, second through fourth hammertoe corrections. 2. Fluoroscopy time: 86 seconds. 2 spot images. Cumulative dose: 0.4447 mgy. Electronically Signed: Johnnie Wilkinson MD at 11:29 EST ,
[2024-02-05] MEDS: Clindamycin 900 MG/50 ML BAG 75 MG IV (12:00)
[2024-02-05] MEDS: Bupivacaine Mpf 0.5% 30 ML VIAL (12:20)
[2024-02-05] MEDS: Bupivacaine 0.5% PF 10 ML VIAL (14:40)
--- NOTE | 2024-02-05 15:21 | PCM.OPRPT ---
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 Business Development: javi [place] Tasks completed by digital marketing assistant: Opening, Closing, Implanting device, Altering tissue and Hemostasis: Electrocautery Type of Anesthesia: General RN Documented Start/Stop Times: Operation Date: 02/05/24 11:00 Case Time Into Pre-Op 02/05/24 09:33 Out of Pre-Op 02/05/24 11:49 Anesthesia Start 02/05/24 11:56 Into Room 02/05/24 11:56 Procedure Start 02/05/24 12:20 Procedure End 02/05/24 15:07 Anesthesia End 02/05/24 15:10 Out of Room 02/05/24 15:10 Into Recovery 02/05/24 15:15 Procedure Start Time: 12:30 Procedure Stop Time: 03:00 Select all DRAINS/GRAFTS/IMPLANTS that apply: Implanted device Implanted device details: [employer], [employer] 1st MPJ plate Special Medications: 40cc 0.5% marcaine plain Estimated Blood Loss: minimal Specimen collected: No Description of surgery: Patient had chronic hallux valgus with hammertoes digits 2 through 4. Patient failed conservative treatment. Due to advanced age and salvage for hallux varus deformity for some BJ fusion was recommended as well as hammertoe correction. Surgical Findings: Patient was brought back the operating placed over the supine position on the operating room table. Patient induced under general anesthesia. Left lower extremity was bumped and neck on external rotation. A well-padded thigh tourniquet was applied to left lower extremity. Left lower extremity was scrubbed prepped and draped in typical aseptic fashion. Procedure #1 first MPJ fusion left foot: Dorsal medial incision across the first MPJ was drawn and made with a 15 blade through epidermis into subcutaneous tissue blunt dissection was taken the level of the fascia for subadjacent capsule any bleeders identified cauterized at this time neurovascular structures were protected with blunt retraction. Linear capsulotomy was performed with #15 blade and the joint was dissected proximally and distally along the dorsal medial lateral aspects to expose the first metatarsal phalangeal joint. EXTR examination of the EXTR first MPJ demonstrates 50% articular cartilage loss. The articular cartilage was then removed using cup and cone reamer reamers. Since site was flushed and then subchondral drilling was performed with a 2 oh drill bit to the proximal and distal aspect of the joint. The joint was pinned in a reduced position relative all 3 front of all 3 planes was noted to be in approximately 5 degrees dorsiflexion noted to be parallel to the adjacent toes with regards to the transverse plane and then no frontal plane rotation noted. Initially a headless compression screw was placed but this was removed as it was not adding to structural stability. A dorsal locking plate was applied instead. The locking plate was locked down distally using 3 locking screws. Using the eccentric compression device with a cortical screw eccentric compression was applied across the joint using appropriate technique. Additional 2 locking screws were applied to the proximal aspect of the joint plate. Adequate reduction was confirmed intraoperatively and with fluoroscopic imaging. Procedure #2 left second digit hammertoe correction: Linear incision was made from the metatarsal phalangeal joint to just distal to the proximal interphalangeal joint over the toe this was made 15 blade through epidermis dermis into subcutaneous tissue transfers capsulotomy and tenotomy was performed at the proximal interphalangeal joint the extensor tendon was dissected off proximally to the metatarsophalangeal joint and a dorsal medial and lateral capsulotomy was performed at the metatarsophalangeal joint the proximal phalangeal head was excised using a sagittal saw the middle phalangeal base was excised using a sagittal saw and a phalanx device was placed across the joint with the toe held in a rectus position. Next the incision was flushed and the tendon extensor tendon was repaired using over and over 4-0 Monocryl stitch. Procedure #3 left third digit hammertoe correction: Linear incision was made from the metatarsal phalangeal joint to just distal to the proximal interphalangeal joint over the toe this was made 15 blade through epidermis dermis into subcutaneous tissue transfers capsulotomy and tenotomy was performed at the proximal interphalangeal joint the extensor tendon was dissected off proximally to the metatarsophalangeal joint and a dorsal medial and lateral capsulotomy was performed at the metatarsophalangeal joint the proximal phalangeal head was excised using a sagittal saw the middle phalangeal base was excised using a sagittal saw and a phalanx device was placed across the joint with the toe held in a rectus position. Next the incision was flushed and the tendon extensor tendon was repaired using over and over 4-0 Monocryl stitch. Procedure #4 left fourth digit hammertoe correction: Linear incision was made from the metatarsal phalangeal joint to just distal to the proximal interphalangeal joint over the toe this was made 15 blade through epidermis dermis into subcutaneous tissue transfers capsulotomy and tenotomy was performed at the proximal interphalangeal joint the extensor tendon was dissected off proximally to the metatarsophalangeal joint and a dorsal medial and lateral capsulotomy was performed at the metatarsophalangeal joint the proximal phalangeal head was excised using a sagittal saw the middle phalangeal base was excised using a sagittal saw and a phalanx device was placed across the joint with the toe held in a rectus position. Next the incision was flushed and the tendon extensor tendon was repaired using over and over 4-0 Monocryl stitch. Fluoroscopic imaging was taken to confirm adequate reduction and good apposition of the joint fusion sites this was noted Tourniquet was let down prior to incisional closure All incisional sites were flushed with copious months of normal sterile saline first MPJ closure performed with continuous interlocking 4-0 Monocryl to the first MPJ joint capsule subcutaneous closure performed with simple interrupted 4-0 Monocryl skin closure performed with horizontal mattress using 4-0 Prolene. The hammertoe sites were closed with simple interrupted buried 4-0 Monocryl followed by skin closure with simple interrupted 4-0 Prolene. Patient was transported the PACU with vital signs stable vascular status intact all digits patient tolerated anesthesia and procedure well in apparent satisfactory condition she will be discharged to home with a cam walking boot No complications Rectus alignment of the first MPJ with rectus alignment of digits 2 through 4 noted postprocedure No specimen Complications Complications: No
--- NOTE | 2024-02-05 16:30 | PCM.POSTANE2 ---
Anesthesia Postop Eval I Sum Anesthesia Postop Eval I Summary Anesthesia Postop Eval I Summary: Anesthesia Postop Eval I: Assessment Summary Airway patent Spontaneous unlabored respirations Mental status nausea Vomiting Anesthesia Postop Eval I: Fluid Summary Crystalloid volume administer (ml) Colloids volume administered ( ml) Blood Product volume administered (ml) Total IV fluid infused Anesthesia Postop Eval I: Summary Notes Anesthesia Complication Anesthesia Complication Comment: Post-operative progress note Anesthesia: Postop Eval II Evaluation Mental status: Awake and Calm Pain Level: 2 nausea: No Vomiting: No Complications Anesthesia Complication: No
--- NOTE | 2024-02-05 16:47 | PCM.POST.ANE ---
Anesthesia: Postop Eval I Current Vital Signs Temperature: 97.1 F Pulse Rate: 75 Blood Pressure: 164/110 (Repeat 180/95 and then 150/84) Respiratory Rate: 14 Pulse Ox: 96 Oxygen Delivery Method: Room Air Assessment Airway patent: Yes Spontaneous unlabored respirations: Yes nausea: No Vomiting: No Anesthesia Complication: No Fluid Hydration Crystalloid volume administer (ml): 1,500 Total IV fluid infused: 1,500 Progress Note Anesthesia document: Postop Eval 1 completed: Yes
== END 2024-02-05 16:49 | disposition home or self-care (01) ==
LOC: SDC 09:22 → AC 09:23
PROVIDERS: PCP Family Medicine; Referring Provider Podiatrist; Visit Provider Podiatrist
PROC: (CPT 28285; principal; 2024-02-05 10:45)
DX: M20.32 Hallux varus (acquired), left foot (principal); J44.9 Chronic obstructive pulmonary disease, unspecified; N39.3 Stress incontinence (female) (male); K21.9 Gastro-esophageal reflux disease without esophagitis; I10 Essential (primary) hypertension; Z90.710 Acquired absence of both cervix and uterus; M54.2 Cervicalgia; G89.29 Other chronic pain; M20.42 Other hammer toe(s) (acquired), left foot; K22.2 Esophageal obstruction; F17.210 Nicotine dependence, cigarettes, uncomplicated
CPT/HCPCS: 28285 ×3; 28755; 01480; 73620; 76000; C1713; J2405

== ENCOUNTER → 2024-03-23 | Outpatient (CLI) | payer OTHER, SELFPAY | END | disposition home or self-care (01) | PROVIDERS: PCP Family Medicine; Referring Provider Podiatrist; Visit Provider Podiatrist | DX: L97.522 Non-pressure chronic ulcer of other part of left foot with fat layer exposed (principal) ==

== ENCOUNTER → 2024-06-29 | Outpatient (CLI) | payer OTHER, SELFPAY | END | disposition home or self-care (01) | LOC: LABSPEC 16:47 | PROVIDERS: PCP Family Medicine; Visit Provider Podiatrist | DX: L97.522 Non-pressure chronic ulcer of other part of left foot with fat layer exposed (principal) | CPT/HCPCS: 87070; 87077; 87186; 87205 ==

== ENCOUNTER → 2024-07-19 | Outpatient (CLI) | payer OTHER, SELFPAY | END | disposition home or self-care (01) | LOC: LABSPEC 16:45 | PROVIDERS: PCP Family Medicine; Visit Provider Podiatrist | DX: L97.522 Non-pressure chronic ulcer of other part of left foot with fat layer exposed (principal) | CPT/HCPCS: 87070; 87205 ==